=== PATIENT | female | born 1990 | race Caucasian/White ===

== ENCOUNTER 2017-01-23 13:40 | Emergency (ER) | payer OTHER ==
[~2017-01-23] VITALS: Ht 149.9 cm; Wt 57.8 kg
[~2017-01-23 13:40] MED LIST: SUMA20SP8
[2017-01-23 13:46] VITALS: TEMP 36.8; Ht 149.9 cm; Wt 57.8 kg
[2017-01-23 15:42] LABS: BASO % 0.1 %; BASO ABS # 0.01 K/uL (0-0.2); COMPLETE YES; EOS % 0.6 %; HEMATOCRIT 37.8 % (37-47); IG% 0.3 %; LYMPH % 22.1 %; LYMPH ABS # 2.11 K/uL (1.2-3.4); MEAN CELL VOLUME 86.1 fL (80-100); MEAN CORPUSCULAR HEMOGLOBIN 30.5 pg (25-34); MEAN CORPUSCULAR HGB CONC 35.4 g/dl (32-36); MEAN PLATELET VOLUME 10.6 fL (7.4-10.4); MONO % 6.3 %; NEUT % 70.6 %; PLATELET COUNT 226 K/uL (130-400); RED BLOOD COUNT 4.39 M/uL (4.2-5.4); WHITE BLOOD COUNT 9.53 K/uL (4.8-10.8)
[2017-01-23 15:50] LABS: INR 1.1 (0.9-1.1); PARTIAL THROMBOPLASTIN RATIO 1.1; PROTHROMBIN TIME (PATIENT) 11.4 SECONDS (9.0-12.0)
[2017-01-23 15:56] LABS: URINE APPEARANCE CLEAR (CLEAR); URINE BILIRUBIN NEG (NEG); URINE COLOR DK YELLOW; URINE EPITHELIAL CELL AUTO >30 /lpf (0-5); URINE NITRITE NEG (NEG); URINE PH 5.5 (4.5-7.5); URINE SPECIFIC GRAVITY 1.029 (1.000-1.030); UROBILINOGEN NEG (NEG)
[2017-01-23 16:03] LABS: CALCIUM 8.7 mg/dl (8.5-10.1); CREATININE 0.65 mg/dl (0.60-1.20); POTASSIUM 4.5 mmol/L (3.5-5.1)
[2017-01-23 16:06] LABS: ALB/GLOB RATIO 1.3 (0.9-2)
[2017-01-23 16:09] LABS: MANUAL MICROSCOPIC REQUIRED? NO; REVIEW REQ? NO
--- NOTE | 2017-01-23 17:43 | DIAGNOSTIC IMAGING REPORT ---
FIRST TRIMESTER ULTRASOUND CLINICAL HISTORY: 5 weeks with vaginal bleeding and pain. COMPARISON STUDY: No previous studies for comparison. TECHNIQUE: Transabdominal and transvaginal sonography of the pelvis was performed. FINDINGS: The uterus measures 7.7 x 4.5 x 6.3 cm. The endometrium measures 1.8 cm in thickness. An intrauterine gestational sac is noted with a mean sac diameter of 0.78 cm. A yolk sac is noted with a diameter of 0.2 cm. No pole is identified. The right ovary measures 2.1 x 2.2 x 2.5 cm and left measures 3.4 x 2.3 x 2.1 cm. Color flow is identified within each ovary. There is a smaller fluid within the pelvis. IMPRESSION: 1. Intrauterine gestational sac identified which contains a yolk sac. No pole identified. However, this may represent a normal early intrauterine . Clinical follow-up, including serial beta hCG levels, is recommended as well as follow-up ultrasound. 2. No sonographic abnormality of the ovaries. 3. Small amount of fluid within the pelvis. Electronically signed by: Genaro Basilio M.D. 01/23/2017 5:41 PM Dictated Date/Time: 01/23/2017 5:38 PM
--- NOTE | 2017-01-23 18:00 | EMERGENCY ROOM VISIT NOTE ---
History First contact with patient: 15:01 Chief Complaint: ED VAG BLEEDING Stated Complaint: PAIN IN PELVIS, 5 WEEKS , BLEEDING History of Present Illness The patient is a 26 year old female who presents to the Emergency Room with complaints of intermittent dark vaginal bleeding. The patient reports that she has had some abdominal discomfort for the past week. She started to notice occasional bleeding starting today. She reports that the bleeding is minimal. She is also had mild nausea, dizziness and headaches. She estimates that she is approximately 5 weeks' with her last menstrual period on 12/20/16. Isidoro history is with a previous spontaneous . She currently does not have a local LEAD SUSTAINABILITY SPECIALIST. She rates her overall discomfort an 8 out of 10. She has not noticed any urinary symptoms, diarrhea, flank pain, fever or chills. Review of Systems HEENT: Denies dizziness, visual problems, hearing loss, tinnitus. Denies difficulty swallowing or oral lesions. PULMONARY: Denies cough, shortness of breath, sputum production or hemoptysis. CARDIOVASCULAR: Denies chest pain, palpitations, dyspnea on exertion, orthopnea or peripheral edema. GASTROINTESTINAL: Denies diarrhea, constipation or vomiting, otherwise see history of present illness. GENITOURINARY: Denies dysuria, frequency, urgency or nocturia. Otherwise see history of present illness. NEUROLOGIC: Denies history of epilepsy, CVA, TIA or chronic headaches. MUSCULOSKELETAL: Denies history of joint tenderness/swelling. SKIN: Denies rashes or lesions. PSYCHIATRIC: Denies history of depression or mental illness. ENDOCRINE: Denies history of diabetes or thyroid disorders. Past Medical/Surgical History Medical Problems: (1) No Known Active Medical Problems Social History Smoking Status: Never Smoker Alcohol Use: none Drug Use: marijuana Marital Status: Housing Status: lives with family Occupation Status: unemployed Current/Historical Medications No Active Prescriptions or Reported Meds Allergies Coded Allergies: No Known Allergies (Unverified , 01/23/17) Physical Exam Vital Signs Date Time Temp Pulse Resp B/P Pulse Ox O2 Delivery O2 Flow Rate FiO2 01/23/17 17:53 93 18 110/67 100 Room Air 01/23/17 16:00 79 18 110/58 100 Room Air 01/23/17 13:46 36.8 86 17 96/62 100 Room Air Physical Exam CONSTITUTIONAL: Healthy and well nourished. Alert and oriented X 3 with positive affect. She does not appear acutely or toxic. HEENT: Normocephalic, atraumatic. Pupils equal, round and reactive. NECK: Full active range of motion without discomfort. RESPIRATORY: Clear to auscultation bilaterally with no wheezing, crackles, rhonchi or stridor. CARDIOVASCULAR: Regular rate and rhythm with no murmurs, rubs or gallops. GASTROINTESTINAL: Bowel sounds present in all quadrants. She has mild superpubic tenderness to palpation. Negative CVA tenderness. No abdominal rigidity, guarding or rebound. GENITOURINARY: Speculum exam was performed by our female physician kindergarten instructional assistant student under my direct supervision. Pelvic exam shows trace dark blood within the vaginal vault. No foreign debris or tissue noted within the cervical os. MUSCULOSKELETAL: Full range of motion of all joints without discomfort. INTEGUMENTARY: No rash or other significant dermatologic conditions noted. HEMATOLOGIC: No ecchymosis or petechiae noted. NEUROLOGIC: No focal neurologic deficits noted. Medical Decision & Procedures ER Provider Diagnostic Interpretation: Pelvic and transvaginal ultrasound is as follows: FIRST TRIMESTER ULTRASOUND CLINICAL HISTORY: 5 weeks with vaginal bleeding and pain. COMPARISON STUDY: No previous studies for comparison. TECHNIQUE: Transabdominal and transvaginal sonography of the pelvis was performed. FINDINGS: The uterus measures 7.7 x 4.5 x 6.3 cm. The endometrium measures 1.8 cm in thickness. An intrauterine gestational sac is noted with a mean sac diameter of 0.78 cm. A yolk sac is noted with a diameter of 0.2 cm. No pole is identified. The right ovary measures 2.1 x 2.2 x 2.5 cm and left measures 3.4 x 2.3 x 2.1 cm. Color flow is identified within each ovary. There is a smaller fluid within the pelvis. IMPRESSION: 1. Intrauterine gestational sac identified which contains a yolk sac. No pole identified. However, this may represent a normal early intrauterine . Clinical follow-up, including serial beta hCG levels, is recommended as well as follow-up ultrasound. 2. No sonographic abnormality of the ovaries. Laboratory Results 01/23/17 15:32 Red Blood Count 4.39, Mean Corpuscular Volume 86.1, Mean Corpuscular Hemoglobin 30.5, Mean Corpuscular Hemoglobin Concent 35.4, Mean Platelet Volume 10.6, Neutrophils (%) (Auto) 70.6, Lymphocytes (%) (Auto) 22.1, Monocytes (%) (Auto) 6.3, Eosinophils (%) (Auto) 0.6, Basophils (%) (Auto) 0.1, Neutrophils # (Auto) 6.72, Lymphocytes # (Auto) 2.11, Monocytes # (Auto) 0.60, Eosinophils # (Auto) 0.06, Basophils # (Auto) 0.01 01/23/17 15:32 Test 01/23/17 15:32 01/23/17 15:35 White Blood Count 9.53 K/uL (4.8-10.8) Red Blood Count 4.39 M/uL (4.2-5.4) Hemoglobin 13.4 g/dL (12.0-16.0) Hematocrit 37.8 % (37-47) Mean Corpuscular Volume 86.1 fL (80-100) Mean Corpuscular Hemoglobin 30.5 pg (25-34) Mean Corpuscular Hemoglobin Concent 35.4 g/dl (32-36) Platelet Count 226 K/uL (130-400) Mean Platelet Volume 10.6 fL (7.4-10.4) Neutrophils (%) (Auto) 70.6 % Lymphocytes (%) (Auto) 22.1 % Monocytes (%) (Auto) 6.3 % Eosinophils (%) (Auto) 0.6 % Basophils (%) (Auto) 0.1 % Neutrophils # (Auto) 6.72 K/uL (1.4-6.5) Lymphocytes # (Auto) 2.11 K/uL (1.2-3.4) Monocytes # (Auto) 0.60 K/uL (0.11-0.59) Eosinophils # (Auto) 0.06 K/uL (0-0.5) Basophils # (Auto) 0.01 K/uL (0-0.2) RDW Standard Deviation 38.9 fL (36.4-46.3) RDW Coefficient of Variation 12.3 % (11.5-14.5) Immature Granulocyte % (Auto) 0.3 % Immature Granulocyte # (Auto) 0.03 K/uL (0.00-0.02) Prothrombin Time 11.4 SECONDS (9.0-12.0) Prothromb Time International Ratio 1.1 (0.9-1.1) Activated Partial Thromboplast Time 29.6 SECONDS (21.0-31.0) Partial Thromboplastin Ratio 1.1 Anion Gap 8.0 mmol/L (3-11) Est Creatinine Clear Calc Drug Dose 100.7 ml/min Estimated GFR () 141.0 Estimated GFR (Non- 121.7 BUN/Creatinine Ratio 28.0 (10-20) Calcium Level 8.7 mg/dl (8.5-10.1) Total Bilirubin 0.5 mg/dl (0.2-1) Aspartate Amino Transf (AST/SGOT) 6 U/L (15-37) Alanine Aminotransferase (ALT/SGPT) 19 U/L (12-78) Alkaline Phosphatase 46 U/L (45-117) Total Protein 7.2 gm/dl (6.4-8.2) Albumin 4.0 gm/dl (3.4-5.0) Globulin 3.2 gm/dl (2.5-4.0) Albumin/Globulin Ratio 1.3 (0.9-2) Human Chorionic Gonadotropin, Quant 5578 mIU/mL Urine Color DK YELLOW Urine Appearance CLEAR (CLEAR) Urine pH 5.5 (4.5-7.5) Urine Specific [place] 1.029 (1.000-1.030) Urine Protein NEG (NEG) Urine Glucose (UA) NEG (NEG) Urine Ketones NEG (NEG) Urine Occult Blood TRACE (NEG) Urine Nitrite NEG (NEG) Urine Bilirubin NEG (NEG) Urine Urobilinogen NEG (NEG) Urine Leukocyte Esterase NEG (NEG) Urine WBC (Auto) 1-5 /hpf (0-5) Urine RBC (Auto) 5-10 /hpf (0-4) Urine Hyaline Casts (Auto) 1-5 /lpf (0-5) Urine Epithelial Cells (Auto) >30 /lpf (0-5) Urine Bacteria (Auto) 1+ (NEG) The above labs were reviewed and normal. Urinalysis shows no evidence for infection. Quantitative beta hCG is 5578. ED Course Patient history and physical exam were performed. Nurse's notes were reviewed. Vital signs were reviewed, showing a blood pressure 96/62. O2 saturation is 100% on room air, and the patient is not tachycardic. IV access was established and labs were drawn. Review of labs shows a quantitative beta hCG of 5578. Remaining labs are otherwise normal. Pelvic exam showed minimal blood within the vaginal vault. No obvious soft tissue noted from the cervical os. Pelvic ultrasound shows a yolk sac without any obvious cardiac activity, which can be normal for early gestational age. The patient was advised of her hCG level and ultrasound findings. She was advised that she would need a repeat quantitative beta hCG and LEAD SUSTAINABILITY SPECIALIST follow-up within the next 48-72 hours. The reports that they utilize the [facility] [place]. Was instructed to call the office to see if they do's workup, otherwise she was provided contact information for the [facility] LEAD SUSTAINABILITY SPECIALIST office. She was encouraged to take Tylenol as needed for pain. The patient and were happy with plan of care, and voiced understanding of all discharge instructions. Medical Decision Patient presents to the emergency department for evaluation of vaginal bleeding. She estimates being approximately 5 weeks . Her quantitative beta hCG is consistent with this gestational age. The patient does not have any significant bleeding on physical exam. At this point I feel that the patient is safe for outpatient follow-up with LEAD SUSTAINABILITY SPECIALIST in 48-72 hours for repeat lab work. She was instructed to return for any significantly worsening bleeding or pain. Impression Primary Impression: Vaginal bleeding in patient at less than 20 weeks gestation Departure Information Prescriptions No Active Prescriptions or Reported Meds Referrals No Doctor, Assigned (PCP) Patient Instructions [facility]
[2017-01-23 18:16] VITALS: BP 122/64; PULSE 84; O2SAT 100
== END 2017-01-23 18:17 | disposition home or self-care (01) ==
LOC: C.EDB 13:43 → C.EDC 18:17
DX: O20.9 Hemorrhage in early pregnancy, unspecified (principal); Z3A.01 Less than 8 weeks gestation of pregnancy

== ENCOUNTER → 2017-01-25 | Outpatient (CLI) | payer OTHER | END | disposition home or self-care (01) | LOC: C.LAB 13:33 | PROVIDERS: ATTEND Obstetrics & Gynecology | DX: O20.0 Threatened abortion (principal) ==

== ENCOUNTER 2017-01-31 17:54 | Emergency (ER) | payer OTHER ==
[~2017-01-31] VITALS: Ht 162.6 cm; Wt 55.0 kg
[2017-01-31 18:05] VITALS: TEMP 36.6; Ht 162.6 cm; Wt 55.0 kg
[2017-01-31 19:07] LABS: BASO % 0.1 %; BASO ABS # 0.01 K/uL (0-0.2); COMPLETE YES; EOS % 0.6 %; HEMATOCRIT 38.3 % (37-47); IG% 0.2 %; LYMPH % 27.3 %; LYMPH ABS # 2.28 K/uL (1.2-3.4); MEAN CELL VOLUME 86.3 fL (80-100); MEAN CORPUSCULAR HGB CONC 34.7 g/dl (32-36); MEAN PLATELET VOLUME 10.8 fL (7.4-10.4); MONO % 6.2 %; NEUT % 65.6 %; PLATELET COUNT 219 K/uL (130-400); RED BLOOD COUNT 4.44 M/uL (4.2-5.4); WHITE BLOOD COUNT 8.34 K/uL (4.8-10.8)
[2017-01-31 19:27] LABS: BUN/CREATININE RATIO 20.9 (10-20); CALCIUM 8.4 mg/dl (8.5-10.1); CREATININE 0.68 mg/dl (0.60-1.20)
[2017-01-31 19:29] LABS: ALB/GLOB RATIO 1.1 (0.9-2)
--- NOTE | 2017-01-31 19:41 | DIAGNOSTIC IMAGING REPORT ---
LIMITED (US) (transabdominal and endovaginal scanning) CLINICAL HISTORY: , vaginal bleeding, cramping. COMPARISON STUDY: 01/23/2017 FINDINGS: A single alive intrauterine gestation is visualized. The crown-rump length measured 5 mm corresponding to an estimated postmenstrual age of 6 weeks and 1 day. The heart rate was 133. There is a very small subchorionic hematoma measuring 20 x 6 x 8 mm. The maternal ovaries were unremarkable in appearance. The maternal cervix was closed. IMPRESSION: Single alive intrauterine gestation. The estimated postmenstrual age is 6 weeks and 1 day. There is a very small subchorionic hematoma. Electronically signed by: Jacky Rivera M.D. 01/31/2017 7:40 PM Dictated Date/Time: 01/31/2017 7:38 PM
[2017-01-31 20:41] LABS: URINE APPEARANCE CLEAR (CLEAR); URINE BILIRUBIN NEG (NEG); URINE COLOR YELLOW; URINE NITRITE NEG (NEG); URINE PH 5.5 (4.5-7.5); URINE SPECIFIC GRAVITY 1.011 (1.000-1.030); UROBILINOGEN NEG (NEG); ZZUR CULT IF INDIC CLEAN CATCH NO
[2017-01-31 20:46] LABS: MANUAL MICROSCOPIC REQUIRED? NO; REVIEW REQ? NO
--- NOTE | 2017-01-31 20:57 | EMERGENCY ROOM VISIT NOTE ---
History First contact with patient: 17:59 Chief Complaint: VAGINAL BLEEDING Stated Complaint: VAG BLEED, ABD PAIN/ 6 WK History of Present Illness The patient is a 26 year old female who presents to the Emergency Room with complaints of vaginal bleeding and lower abdominal pain which began just prior to arrival. The patient was seen here approximately one week ago for vaginal bleeding in early . She states that she had a follow-up ultrasound today at the [facility] and the ultrasound was normal. The patient reports that just prior to arrival, she had a small amount of bright red blood when she went to the bathroom. She also reports some intermittent crampy suprapubic abdominal pain. She rates the discomfort a 4/10. She believes she is approximately 6 weeks . The patient has not yet seen an LA[facility] MOWER SH[facility]ENER for this , but was seen by the [facility] today. She denies any urinary symptoms, changes in bowel movements, fevers, nausea or vomiting. The patient is very anxious because she has had a prior miscarriage. Review of Systems A complete 10-point Review of Systems was discussed with the patient, with pertinent positives and negatives listed in the History of Present Illness. All remaining Review of Systems questions can be considered negative unless otherwise specified. Past Medical/Surgical History Medical Problems: (1) No Known Active Medical Problems Social History Smoking Status: Never Smoker Alcohol Use: none Drug Use: marijuana Marital Status: Housing Status: lives with family Occupation Status: unemployed Current/Historical Medications No Active Prescriptions or Reported Meds Allergies Coded Allergies: No Known Allergies (Unverified , 01/31/17) Physical Exam Vital Signs Date Time Temp Pulse Resp B/P Pulse Ox O2 Delivery O2 Flow Rate FiO2 01/31/17 21:11 66 20 107/62 99 Room Air 01/31/17 21:11 65 18 107/62 99 01/31/17 18:14 86 01/31/17 18:05 36.6 88 20 129/71 Room Air Physical Exam VITALS: Vitals are noted on the nurse's note and reviewed by myself. Vital signs stable. GENERAL: This is a 26-year-old female, Anxious appearing, tearful, well- developed well-nourished. SKIN: Capillary reflex less than 2 seconds. HEART: Regular rate and rhythm without murmurs gallops or rubs. LUNGS: Clear to auscultation bilaterally without wheezes, rales or rhonchi. ABDOMEN: Positive bowel sounds x 4. Soft, minimal suprapubic tenderness to palpation. PELVIC: Deferred. NEURO: Patient was alert and oriented to person place and time. Medical Decision & Procedures ER Provider Diagnostic Interpretation: LIMITED (US) (transabdominal and endovaginal scanning) CLINICAL HISTORY: , vaginal bleeding, cramping. COMPARISON STUDY: 01/23/2017 FINDINGS: A single alive intrauterine gestation is visualized. The crown-rump length measured 5 mm corresponding to an estimated postmenstrual age of 6 weeks and 1 day. The heart rate was 133. There is a very small subchorionic hematoma measuring 20 x 6 x 8 mm. The maternal ovaries were unremarkable in appearance. The maternal cervix was closed. IMPRESSION: Single alive intrauterine gestation. The estimated postmenstrual age is 6 weeks and 1 day. There is a very small subchorionic hematoma. Laboratory Results 01/31/17 18:51 Red Blood Count 4.44, Mean Corpuscular Volume 86.3, Mean Corpuscular Hemoglobin 30.0, Mean Corpuscular Hemoglobin Concent 34.7, Mean Platelet Volume 10.8, Neutrophils (%) (Auto) 65.6, Lymphocytes (%) (Auto) 27.3, Monocytes (%) (Auto) 6.2, Eosinophils (%) (Auto) 0.6, Basophils (%) (Auto) 0.1, Neutrophils # (Auto) 5.46, Lymphocytes # (Auto) 2.28, Monocytes # (Auto) 0.52, Eosinophils # (Auto) 0.05, Basophils # (Auto) 0.01 01/31/17 18:51 Test 01/31/17 18:51 01/31/17 19:35 White Blood Count 8.34 K/uL (4.8-10.8) Red Blood Count 4.44 M/uL (4.2-5.4) Hemoglobin 13.3 g/dL (12.0-16.0) Hematocrit 38.3 % (37-47) Mean Corpuscular Volume 86.3 fL (80-100) Mean Corpuscular Hemoglobin 30.0 pg (25-34) Mean Corpuscular Hemoglobin Concent 34.7 g/dl (32-36) Platelet Count 219 K/uL (130-400) Mean Platelet Volume 10.8 fL (7.4-10.4) Neutrophils (%) (Auto) 65.6 % Lymphocytes (%) (Auto) 27.3 % Monocytes (%) (Auto) 6.2 % Eosinophils (%) (Auto) 0.6 % Basophils (%) (Auto) 0.1 % Neutrophils # (Auto) 5.46 K/uL (1.4-6.5) Lymphocytes # (Auto) 2.28 K/uL (1.2-3.4) Monocytes # (Auto) 0.52 K/uL (0.11-0.59) Eosinophils # (Auto) 0.05 K/uL (0-0.5) Basophils # (Auto) 0.01 K/uL (0-0.2) RDW Standard Deviation 38.8 fL (36.4-46.3) RDW Coefficient of Variation 12.2 % (11.5-14.5) Immature Granulocyte % (Auto) 0.2 % Immature Granulocyte # (Auto) 0.02 K/uL (0.00-0.02) Anion Gap 6.0 mmol/L (3-11) Est Creatinine Clear Calc Drug Dose 107.4 ml/min Estimated GFR () 138.9 Estimated GFR (Non- 119.9 BUN/Creatinine Ratio 20.9 (10-20) Calcium Level 8.4 mg/dl (8.5-10.1) Total Bilirubin 0.2 mg/dl (0.2-1) Aspartate Amino Transf (AST/SGOT) 8 U/L (15-37) Alanine Aminotransferase (ALT/SGPT) 18 U/L (12-78) Alkaline Phosphatase 42 U/L (45-117) Total Protein 6.8 gm/dl (6.4-8.2) Albumin 3.6 gm/dl (3.4-5.0) Globulin 3.2 gm/dl (2.5-4.0) Albumin/Globulin Ratio 1.1 (0.9-2) Human Chorionic Gonadotropin, Quant 83091 mIU/mL Urine Color YELLOW Urine Appearance CLEAR (CLEAR) Urine pH 5.5 (4.5-7.5) Urine Specific [place] 1.011 (1.000-1.030) Urine Protein NEG (NEG) Urine Glucose (UA) NEG (NEG) Urine Ketones NEG (NEG) Urine Occult Blood 3+ (NEG) Urine Nitrite NEG (NEG) Urine Bilirubin NEG (NEG) Urine Urobilinogen NEG (NEG) Urine Leukocyte Esterase NEG (NEG) Urine WBC (Auto) 1-5 /hpf (0-5) Urine RBC (Auto) >30 /hpf (0-4) Urine Hyaline Casts (Auto) 0 /lpf (0-5) Urine Epithelial Cells (Auto) 10-20 /lpf (0-5) Urine Bacteria (Auto) NEG (NEG) Medical Decision Differential diagnosis includes spontaneous , threatened , placenta previa, first trimester bleeding, among others. The patient was evaluated as above. Labs were drawn and IV access was obtained. Imaging studies were performed and read by radiology as above. The patient was reassessed multiple times during their stay in the emergency department and remained in stable condition. The patient is a 26-year-old female who presents today complaining of vaginal bleeding in . Labs revealed no leukocytosis, anemia or concerning electrolyte abnormalities. Urinalysis was not suggestive of infection. Beta hCG was greater than 30,000, increased from 11,000 eight days ago. Ultrasound showed a live intrauterine . The patient's bleeding has stopped and I did not feel pelvic exam was necessary. Patient had ABO/Rh blood type drawn last week and was Rh+. The patient was informed of all findings and reassured. She will follow-up with LAWN MOWER SHARPENER next week. She will return sooner for worsening symptoms. Based on the patient's presentation, lab results, and imaging studies, I feel the patient is stable for outpatient treatment. Discharge instructions were reviewed with the patient. The patient verbalized understanding of my assessment and treatment plan and was discharged home in good condition. Impression Primary Impression: Threatened Departure Information Dispostion Home / Self-Care Condition GOOD Prescriptions No Active Prescriptions or Reported Meds Referrals No Doctor, Assigned (PCP) Patient Instructions My X-1 Additional Instructions Rest and drink plenty of fluids. Pelvic rest: Nothing inside the vagina until you follow up with LAWN MOWER SHARPENER. Follow-up with [facility] LAWN MOWER SHARPENER. Call for appointment. Return to the emergency department with increased bleeding, increased pain or any other new/concerning symptoms.
[2017-01-31 21:11] VITALS: BP 107/62; PULSE 66; O2SAT 99
== END 2017-01-31 21:12 | disposition home or self-care (01) ==
LOC: EDBD 17:54 → C.EDB 17:55
DX: O20.0 Threatened abortion (principal); Z3A.01 Less than 8 weeks gestation of pregnancy

== ENCOUNTER → 2017-02-08 | Outpatient (CLI) | payer OTHER ==
[2017-02-07 19:27] LABS: URINE APPEARANCE CLEAR (CLEAR); URINE BILIRUBIN NEG (NEG); URINE COLOR DK YELLOW; URINE NITRITE NEG (NEG); URINE PH 5.5 (4.5-7.5); URINE SPECIFIC GRAVITY 1.023 (1.000-1.030); UROBILINOGEN NEG (NEG)
[2017-02-07 19:37] LABS: MANUAL MICROSCOPIC REQUIRED? NO; REVIEW REQ? NO
== END | disposition home or self-care (01) ==
LOC: C.LABSPEC 11:00
PROVIDERS: ATTEND Obstetrics & Gynecology
DX: Z34.81 Encounter for supervision of other normal pregnancy, first trimester (principal)

== ENCOUNTER → 2017-02-14 | Outpatient (CLI) | payer OTHER ==
[2017-02-14 16:36] LABS: BASO % 0.1 %; BASO ABS # 0.01 K/uL (0-0.2); COMPLETE YES; EOS % 0.4 %; HEMATOCRIT 37.5 % (37-47); IG% 0.4 %; LYMPH % 23.5 %; LYMPH ABS # 2.35 K/uL (1.2-3.4); MEAN CELL VOLUME 87.8 fL (80-100); MEAN CORPUSCULAR HEMOGLOBIN 30.7 pg (25-34); MEAN CORPUSCULAR HGB CONC 34.9 g/dl (32-36); MEAN PLATELET VOLUME 11.3 fL (7.4-10.4); MONO % 4.9 %; NEUT % 70.7 %; PLATELET COUNT 241 K/uL (130-400); RED BLOOD COUNT 4.27 M/uL (4.2-5.4); WHITE BLOOD COUNT 9.98 K/uL (4.8-10.8)
[2017-02-18 00:52] LABS: VARICELLA ZOS VIR IGG VALUE 0.95 INDEX
== END | disposition home or self-care (01) ==
LOC: C.LAB1850 15:10
PROVIDERS: ATTEND Obstetrics & Gynecology
DX: Z34.81 Encounter for supervision of other normal pregnancy, first trimester (principal)

== ENCOUNTER → 2017-02-14 | Outpatient (CLI) | payer OTHER ==
[2017-02-18 08:39] LABS: CHLAMYDIA TRACH RNA*** NOT DETECTED (NOT DETECTED); GC (NEIS GONORRHOEAE)RNA** NOT DETECTED (NOT DETECTED)
== END | disposition home or self-care (01) ==
LOC: C.LABSPEC 17:49
PROVIDERS: ATTEND Obstetrics & Gynecology
DX: Z34.81 Encounter for supervision of other normal pregnancy, first trimester (principal)

== ENCOUNTER → 2017-02-14 | Outpatient (CLI) | payer OTHER | END | disposition home or self-care (01) | LOC: C.PAPS 10:00 | PROVIDERS: ATTEND Obstetrics & Gynecology | DX: Z12.4 Encounter for screening for malignant neoplasm of cervix (principal); Z87.42 Personal history of other diseases of the female genital tract ==

== ENCOUNTER → 2017-04-09 | Outpatient (CLI) | payer OTHER ==
[~2017-04-09] MED LIST changes: +PRENTAB26 PO; -SUMA20SP8
[2017-04-09 18:29] LABS: GTGD 50 Grams
== END | disposition home or self-care (01) ==
LOC: C.LAB1850 16:00
PROVIDERS: ATTEND Obstetrics & Gynecology
DX: Z34.82 Encounter for supervision of other normal pregnancy, second trimester (principal)

== ENCOUNTER → 2017-04-29 | Outpatient (CLI) | payer OTHER | END | disposition home or self-care (01) | LOC: C.LAB1850 07:02 | PROVIDERS: ATTEND Obstetrics & Gynecology | DX: O28.9 Unspecified abnormal findings on antenatal screening of mother (principal); Z3A.00 Weeks of gestation of pregnancy not specified ==

== ENCOUNTER → 2017-07-04 | Outpatient (CLI) | payer OTHER ==
[2017-07-04 09:28] LABS: HEMATOCRIT 33.2 % (37-47)
[2017-07-04 12:16] LABS: URINE APPEARANCE CLEAR (CLEAR); URINE BILIRUBIN NEG (NEG); URINE COLOR YELLOW; URINE EPITHELIAL CELL AUTO >30 /lpf (0-5); URINE NITRITE NEG (NEG); URINE PH 6.5 (4.5-7.5); UROBILINOGEN NEG (NEG)
[2017-07-04 12:36] LABS: MANUAL MICROSCOPIC REQUIRED? NO; REVIEW REQ? YES
== END | disposition home or self-care (01) ==
LOC: C.LAB1850 07:42
PROVIDERS: ATTEND Obstetrics & Gynecology
DX: Z34.83 Encounter for supervision of other normal pregnancy, third trimester (principal)

== ENCOUNTER → 2017-09-06 | Outpatient (CLI) | payer OTHER | END | disposition home or self-care (01) | LOC: C.LABSPEC 17:23 | PROVIDERS: ATTEND Obstetrics & Gynecology | DX: Z34.83 Encounter for supervision of other normal pregnancy, third trimester (principal); Z3A.00 Weeks of gestation of pregnancy not specified ==

== ENCOUNTER 2017-10-07 05:59 | Inpatient (IN) | payer OTHER ==
[~2017-10-07] VITALS: Ht 157.5 cm; Wt 71.0 kg
[2017-10-07 07:25] VITALS: Ht 157.5 cm; Wt 71.0 kg
[2017-10-07] MEDS ORDERED: LACTATED RINGER'S 1000ML 1,000 ML IV PRN (07:25)
[2017-10-07] MEDS ORDERED: PRENTAB26 PO (07:33)
[2017-10-07 07:49] LABS: HEMATOCRIT 34.8 % (37-47); MEAN CELL VOLUME 88.1 fL (80-100); MEAN CORPUSCULAR HEMOGLOBIN 29.9 pg (25-34); MEAN CORPUSCULAR HGB CONC 33.9 g/dl (32-36); MEAN PLATELET VOLUME 10.7 fL (7.4-10.4); PLATELET COUNT 214 K/uL (130-400); RED BLOOD COUNT 3.95 M/uL (4.2-5.4); WHITE BLOOD COUNT 10.19 K/uL (4.8-10.8)
[2017-10-07] MEDS ORDERED: LACTATED RINGER'S 1000ML 1,000 ML IV SCH (08:00)
[2017-10-07] MEDS ORDERED: BUPIVACAINE 0.25% 30 ML VIAL ONE (10:06)
[2017-10-07] MEDS ORDERED: EpHEDrine SULFATE INJ 50 MG/ML AMP ONE (10:06)
[2017-10-07] MEDS ORDERED: FENTANYL 2MCG/ML ROPIV 1.25MG/ML 100ML BAG EPI ONE (10:06)
[2017-10-07] MEDS ORDERED: FENTANYL CITRATE INJ 50 MCG/1 ML 2 ML VIAL ONE (10:07)
[2017-10-07] MEDS ORDERED: FENTANYL 2MCG/ML ROPIV 1.25MG/ML 100ML BAG EPI PRN (11:00)
[2017-10-07] MEDS ORDERED: EpHEDrine SULFATE INJ 50 MG/ML AMP IV PRN (11:00)
[2017-10-07] MEDS ORDERED: NALOXONE HCL INJ 0.4 MG/1 ML VIAL/CARP IV PRN (11:00)
[2017-10-07] MEDS ORDERED: NALOXONE HCL INJ 1 MG in SODIUM CHLORIDE 0.9% 1000ML 1,000 ML IV PRN (11:00)
[2017-10-07] MEDS ORDERED: LACTATED RINGER'S 1000ML 500 ML IV PRN ×2 (11:00→12:36)
[2017-10-07] MEDS ORDERED: NALBUPHINE HCL INJ 10 MG/ML AMP IV PRN (11:00)
[2017-10-07] MEDS ORDERED: DiphenhydrAMINE HCL 50 MG/ML VIAL IV PRN (11:00)
[2017-10-07] MEDS ORDERED: ONDANSETRON INJ 2 MG/ML 2 ML VIAL IV PRN (11:00)
[2017-10-07] MEDS ORDERED: OXYTOCIN 30 UNITS/500ML NSS IV PRN ×2 (12:45→17:00)
[2017-10-07] MEDS ORDERED: HYDROCORTISONE ACETATE 25 MG SUPP PR PRN (17:00)
[2017-10-07] MEDS ORDERED: BENZOCAINE 20% AER SPR 82.5 GM CAN EXT PRN (17:00)
[2017-10-07] MEDS ORDERED: ACETAMINOPHEN 325 MG TAB PO PRN (17:00)
[2017-10-07] MEDS ORDERED: SUPERCREAM 0.870 % 15GM JAR EXT PRN (17:00)
[2017-10-07] MEDS ORDERED: ACETAMINOPHEN/CODEINE 300/30MG TAB PO PRN (17:00)
[2017-10-07] MEDS ORDERED: LANOLIN OINT EXT PRN ×2 (17:00)
--- NOTE | 2017-10-07 17:36 | DELIVERY SUMMARY ---
DATE OF OPERATION: 10/07/2017 The patient dilated to complete and pushed to deliver a viable male , Apgars 8 and 9 via over second degree perineal laceration. Mouth and nose were bulb suctioned at the perineum. Nuchal cord x2 loose, reduced. Shoulders and body were delivered with ease. The was vigorous and crying at . Terminal meconium noted. Cord clamped at 30 seconds of life. to maternal abdomen. Cord then doubly clamped and cut. Placenta delivered spontaneously and intact 3-vessel cord. Hemostasis achieved with dilute Pitocin and uterine massage. Bladder also drained under sterile conditions for approximately 100 mL. Laceration repaired in the usual fashion using 3-0 Vicryl. EBL 500 mL. Mother and baby stable in recovery. I attest to the content of the Intraoperative Record and any orders documented therein. Any exception s are noted below.
[2017-10-07] MEDS ORDERED: OXYTOCIN INJ 20 UNITS in LACTATED RINGER'S 1000ML 1,000 ML IV SCH (17:41)
--- NOTE | 2017-10-07 17:57 | Anesthesia Procedure Note ---
Anesthesia Epidural Removal Nt Date & Time Oct 07, 2017 at 17:57 Vital Signs Pain Intensity: 6.0 Notes Mental Status: alert / awake / arousable, participated in evaluation Nausea / Vomiting: adequately controlled Pain: adequately controlled Airway Patency, RR, SpO2: stable & adequate BP & HR: stable & adequate Hydration State: stable & adequate Neuraxial Anesthesia: was administered, sensory block is resolving Anesthetic Complications: no major complications apparent, pt satisfied with anesthetic care Epidural: removed without complications, with tip intact
[2017-10-07] MEDS: IBUPROFEN 600 MG TAB PO PRN (19:34)
[2017-10-07] MEDS: DOCUSATE SODIUM 100 MG CAP PO SCH (20:00)
[2017-10-07 20:50] VITALS: BP 104/68; PULSE 106; TEMP 37.3
[2017-10-07 23:40] VITALS: BP 109/64; PULSE 105; TEMP 37
[2017-10-08 03:35] VITALS: BP 100/62; PULSE 80; TEMP 36.9
[2017-10-08] MEDS: IBUPROFEN 600 MG TAB PO PRN ×2 (03:42→08:27)
--- NOTE | 2017-10-08 06:38 | Progress Note ---
Subjective Oct 08, 2017. Subjective conversation w/ patient, physical exam Ambulation: ambulating normally Voiding: no voiding problems Diet Tolerance: Regular Diet Lochia: Small Feeding Type: Breast Feeding Comment: nipples are sore, tried to bottle feed but baby did not take Objective Vital Signs Date Time Temp Pulse Resp B/P (MAP) Pulse Ox O2 Delivery O2 Flow Rate FiO2 10/08/17 03:35 36.9 80 18 100/62 10/07/17 23:40 Room Air 10/07/17 23:40 37.0 105 20 109/64 10/07/17 20:50 37.3 106 16 104/68 Physical Exam General Appearance: WELL-APPEARING, WD/WN, NO APPARENT DISTRESS Respiratory/Chest: lungs clear Cardiovascular: regular rate, rhythm Abdomen: non tender, soft Fundus: Firm, Relation to Umbilicus (at u and to the left. ) Extremities: non-tender Laboratory Results Last 24 Hours Test 10/07/17 07:42 10/08/17 06:27 White Blood Count 10.19 K/uL Red Blood Count 3.95 M/uL Hemoglobin 11.8 g/dL Hematocrit 34.8 % Mean Corpuscular Volume 88.1 fL Mean Corpuscular Hemoglobin 29.9 pg Mean Corpuscular Hemoglobin Concent 33.9 g/dl RDW Standard Deviation 41.3 fL RDW Coefficient of Variation 12.8 % Platelet Count 214 K/uL Mean Platelet Volume 10.7 fL Assessment and Plan Problem List Medical Problems: (1) Threatened Status: Acute (2) Vaginal bleeding in patient at less than 20 weeks gestation Status: Acute Post- Day#: 1 Continue Routine Care: routine care, breast feeding support, rh pos, ri. bottom sore, try sitz bath today, expectations for healing reviewed. likely needs to void due to fundus location. counseled.
[2017-10-08 06:48] LABS: HEMATOCRIT 25.1 % (37-47)
[2017-10-08 07:30] VITALS: BP 99/63; PULSE 96; TEMP 37; O2SAT 99
[2017-10-08] MEDS: PRENATAL VITAMIN TAB PO SCH (08:26)
[2017-10-08] MEDS: FERROUS SULFATE 325 MG TAB PO SCH (08:26)
[2017-10-08] MEDS: DOCUSATE SODIUM 100 MG CAP PO SCH ×2 (08:26→21:08)
[2017-10-08] MEDS: ACETAMINOPHEN/CODEINE 300/30MG TAB PO PRN ×2 (08:32→21:07)
[2017-10-08 12:55] VITALS: BP 98/63; PULSE 101; TEMP 37; O2SAT 98
[2017-10-08 16:00] VITALS: BP 104/71; PULSE 128; TEMP 37.2
[2017-10-09 00:25] VITALS: BP 99/65; PULSE 109; TEMP 37.3; O2SAT 98
[2017-10-09] MEDS: IBUPROFEN 600 MG TAB PO PRN ×2 (00:37→08:50)
[2017-10-09] MEDS: ACETAMINOPHEN/CODEINE 300/30MG TAB PO PRN ×2 (01:52→08:50)
[2017-10-09 06:50] LABS: HEMATOCRIT 22.1 % (37-47)
[2017-10-09] MEDS ORDERED: BISACODYL 10 MG SUPP PR PRN (07:00)
--- NOTE | 2017-10-09 07:09 | OB/GYN Progress Note ---
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 Subjective conversation w/ patient, physical exam, chart review, lab review Ambulation: ambulating normally Voiding: no voiding problems Passing Gas: Yes Diet Tolerance: Regular Diet Lochia: Moderate Feeding Type: Breast Feeding Pain: 6/10 pain with movement without meds Review of Systems Constitutional: No fever, No chills Respiratory: No shortness of breath Cardiac: No chest pain Abdomen: No nausea, No vomiting Female : No dysuria reports dizziness when getting up Objective Vital Signs Date Time Temp Pulse Resp B/P (MAP) Pulse Ox O2 Delivery O2 Flow Rate FiO2 10/09/17 00:25 37.3 109 18 99/65 (76) 98 Room Air 10/09/17 00:25 Room Air 10/08/17 16:00 37.2 128 16 104/71 (82) Room Air 10/08/17 16:00 Room Air 10/08/17 12:55 37.0 101 16 98/63 (75) 98 Room Air 10/08/17 07:30 Room Air 10/08/17 07:30 37.0 96 16 99/63 (75) 99 Room Air Physical Exam General Appearance: WELL-APPEARING Respiratory/Chest: lungs clear, normal breath sounds Cardiovascular: regular rate, rhythm Abdomen: normal bowel sounds, non tender, soft Fundus: Firm, Relation to Umbilicus (2 FB below) Extremities: non-tender, + pedal edema (trace) Laboratory Results Last 24 Hours Test 10/09/17 06:33 Hemoglobin 7.3 g/dL Hematocrit 22.1 % Assessment and Plan Post- Day Number: 2 Continue Routine Care: Resident Physician Supervision Note: I interviewed and examined the patient. Discussed with Dr. Alarcon and agree with findings and plan as documented in the note. Any exceptions or clarifications are listed here: [None] Documented By: Annika Stephens A/P: This is a 26 y/o female, , s/p [normal vaginal delivery] day 2. This AM reports dizziness while getting up but she is ambulating and otherwise clinically stable to discharge. Dizziness likely due to low Hgb of 7.3 . Encouraged to stay well hydrated. - Vital signs are reviewed and WNL (Tmax 37.3) - Last Hgb 7.3 - Blood type AB+, GBS neg, Rubella Immune - No signs of depression. - Routine care - Discussed resting, feeding, pain control, mastitis, control, follow up in 6 weeks and reasons to call sooner, if necessary. - Continue with pain medication as needed, and continue vitamins and ferrous sulfate. - Encourage breast feeding and educate about breast feeding - Patient understands and keen for home. - Plan to discharge home Resident Involvement: Resident Care Provided Care Provided: OB Delivery
--- NOTE | 2017-10-09 07:10 | Discharge Instructions ---
Discharge Instructions Date of Service Oct 09, 2017. Admission Reason for Admission: LABOR Discharge Discharge Diagnosis / Problem: after vaginal delivery Discharge Goals Goal(s): Routine recovery after delivery Medications Continue Dispensed Medications: supercream, dermaplast, tucks, lansinoh Activity Recommendations Activity Limitations: per Instructions/Follow-up section . Instructions / Follow-Up Instructions / Follow-Up ACTIVITY RECOMMENDATIONS: * Gradual return to full activity over the next 2-3 weeks. * No lifting - nothing heavier than baby over the next 2-3 weeks. * Do not engage in vigorous exercise, sexual activity or sports until cleared by your physician. * Do not drive or operate any motorized equipment until cleared by your physician. * You may shower/bathe daily. MEDICATIONS: For discomfort or pain, you may use Acetaminophen (Tylenol), Ibuprofen (Advil), or Naproxen (Aleve) following the package directions. For constipation you may use Colace following the package directions. BREAST CARE: If you are not breast feeding: * Wear a supportive bra 24 hours a day for one to two weeks. * Avoid stimulating your breasts and nipples as much as possible during the first few weeks after delivery. * When taking a shower, have the warm water hit your back, not breasts. * When your breasts feel full, apply ice packs. Usually three to four times a day helps ease the discomfort. * Take a mild pain medication (Tylenol / Motrin) when you are uncomfortable. If breast feeding: * Use breast milk to lubricate nipples. Lansinoh cream may be used for sore nipples. You do not need to remove cream prior to breast feeding. If using a different brand of cream, check the label for directions regarding removal of cream prior to nursing. * Wear a supportive bra. * If having problems with breasts or breast feeding, call a investigations consultant or your health care provider. EPISIOTOMY CARE: After delivery, if you have an episiotomy (stitches), the following steps will ease discomfort and aid healing. * For the first 24 hours after delivery, place ice packs next to your episiotomy to help reduce swelling. * After the first 24 hour-period, sitz baths, either portable or in the tub, are suggested. A shower with a shower arm sprayed over the episiotomy may be comforting. * Anastasia care should be done after each voiding and bowel movement. Squirt warm water from a plastic bottle over the perineum (region of the body between the anus and urinary opening) and pat dry. * Use Dermoplast to ease discomfort. Shake container. Rozel directly over the episiotomy. Place a Tucks on a clean sanitary pad next to your episiotomy. SPECIAL CARE INSTRUCTIONS: When you are discharged from the hospital, it is important for you to follow the instructions listed below: * During the first week at home, you should be able to care for yourself and your baby. In addition, the usual light household activities are encouraged. * Limit your activities to the way you feel. Do not try to clean the house or move furniture. Be sensible. * If you actively engage in sports and have done so up until the time of your delivery, you may resume these activities as soon as you feel able. This may take up to one month or even longer. Use good judgment. * Continue to take your vitamins for at least six weeks after the of your baby. * Your diet need not be limited unless you were on a special diet before your delivery. Breast-feeding mothers need around 2500 calories per day and at least 64-80 ounces of fluid per day (8 to 10 glasses). * You should eat foods from the four major food groups. Crash diets or fad diets are to be avoided. Eating lean meats, fresh fruits and vegetables, low-fat dairy products, high fiber foods and a regular exercise program, will help you get back to your pre- weight without putting your health at risk. * Constipation is sometimes a problem after delivery. Take a mild laxative as needed. If breast feeding, Milk of Magnesia is acceptable to use. You may use a suppository or Fleets enema if no episiotomy. * A daily shower or tub bath is suggested. Be sure to thoroughly and gently dry the perineum. * A bloody vaginal discharge will usually continue until around four weeks post . A small amount of bleeding may continue for as long as six weeks. Vaginal discharge changes from the bright red bleeding after delivery to pink then brownish and finally yellowish-pink before becoming white and disappearing. * Bleeding may increase with activity. Your first period may come in 4-8 weeks. If you are breast feeding, your period may be delayed even longer. * Pueblito (sex) can begin whenever both you and your partner feel comfortable and do not have any form of genital infection. It is recommended that you wait at least six weeks for internal and external healing to occur. If you have questions, please talk to your health care practitioner. A condom should be used to prevent infection and . * Foreplay, gentle intercourse and lubrication is very important the first several times to prevent pain. A water-based lubricant such as K-Y jelly or Astroglide may be used. * If you have RH negative blood and your baby is RH positive, you will receive RHOGAM by injection prior to discharge. The nurse will give you a card to keep with you that has the date and place that you received RHOGAM after delivery. * During your care, you had a Rubella screen done to check for the presence of rubella antibodies in your blood. If your test was negative, you will receive a Rubella vaccine prior to discharge. This vaccine may cause a fever, soreness at the injection site and flu-like symptoms. If these symptoms persist, notify your health care practitioner. is not advised for one month after a Rubella vaccine. * Verbalizes understanding of car seat law as reviewed with patient nursing. * Car Seat hand-out given and reviewed with patient by nursing. * Shaken baby information reviewed with patient by nursing. Call you doctor if: * Heavy bleeding (saturating several pads an hour) or passing clots the size of your fist. * A fever >101 degrees F (38.3 degrees C) on two occasions four hours apart and /or chills. * Unusual pain in the pelvic or vaginal areas. * "Baby Blues" lasting longer than two weeks. If you have any questions or concerns, call your health care practitioner at . FOLLOW UP VISIT: * Please call the office at to schedule a 6 week examination. It is important you keep this appointment. It is important for you to make arrangements for either yearly or twice yearly check-ups thereafter. Current Hospital Diet Patient's current hospital diet: Regular OB Diet Discharge Diet Recommended Diet: Regular Diet Pending Studies Studies pending at discharge: no Medical Emergencies . Who to Call and When: Medical Emergencies: If at any time you feel your situation is an emergency, please call 911 immediately. . 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 . "Provider Documentation" section prepared by Albert Alarcon. . VTE Core Measure Inpt VTE Proph given/why not?: Treatment not indicated
[2017-10-09] MEDS: FERROUS SULFATE 325 MG TAB PO SCH (08:49)
[2017-10-09] MEDS: PRENATAL VITAMIN TAB PO SCH (08:49)
[2017-10-09] MEDS: DOCUSATE SODIUM 100 MG CAP PO SCH (08:49)
[2017-10-09 13:30] VITALS: BP_DIAS 65; PULSE 109; TEMP 37.3
== END 2017-10-09 13:30 | disposition home or self-care (01) | DRG 775 ==
LOC: C.OPB 05:59 → C.LD 05:59 → C.OPB 07:28 → C.OBG 20:53
PROVIDERS: ADMIT Obstetrics & Gynecology; ATTEND Obstetrics & Gynecology
PROC: 10E0XZZ Delivery of Products of Conception, External Approach (ICD-10-PCS; principal; 2017-10-07)
PROC: 0KQM0ZZ Repair Perineum Muscle, Open Approach (ICD-10-PCS; principal; 2017-10-07)
DX: O48.0 Post-term pregnancy (principal); O70.1 Second degree perineal laceration during delivery; O69.81X0 Labor and delivery complicated by cord around neck, without compression, not applicable or unspecified; O76 Abnormality in fetal heart rate and rhythm complicating labor and delivery; Z3A.41 41 weeks gestation of pregnancy; Z37.0 Single live birth